=== PATIENT | male | born 1985 ===

== ENCOUNTER → 2022-08-01 13:30 | Outpatient (BNVA) | payer OTHER, SELFPAY | PROVIDERS: PCP Family Medicine; Visit Provider Clinical Nurse Specialist Adult Health | DX: J02.9 Acute pharyngitis, unspecified (principal); J02.8 Acute pharyngitis due to other specified organisms; J06.9 Acute upper respiratory infection, unspecified | CPT/HCPCS: 87880 ==

== ENCOUNTER → 2023-01-23 10:22 | Outpatient (BNVA) | payer MEDICAID, SELFPAY | PROVIDERS: PCP Family Medicine; Visit Provider Nurse Practitioner | DX: J02.0 Streptococcal pharyngitis (principal) | CPT/HCPCS: 87880 ==

== ENCOUNTER 2024-12-03 16:26 | Emergency (ER) | payer BC, SELFPAY ==
[2024-12-03 16:48] VITALS: BP 128/99; PULSE 65; RESP 18; TEMP 36.6; O2SAT 100; BMI 32.5
[2024-12-03] MEDS: tetracaine 0.5% Op Soln 4 mL Btl 1 DROP EYE-BOTH (17:27)
[2024-12-03] MEDS: fluorescein 1 mg Strip EYE-BOTH (17:27)
[2024-12-03 17:33] VITALS: BP 143/85; PULSE 63; O2SAT 96
--- NOTE | 2024-12-03 17:36 | W.ED.EYEPROB ---
HPI - Eye Problem General: Chief complaint: Eye Problems Stated complaint: rt eye inj Time Seen by Provider: 12/03/24 16:50 Source: patient Mode of arrival: ambulatory Limitations: no limitations History of Present Illness: Patient is a 39-year-old male who presents the emergency department complaining of right eye irritation beginning this morning. Patient states he was chopping wood when he had the sudden onset of something get in his eye, states that he has had constant foreign body sensation. Notes mild visual changes. Denies any significant headache. Does not report any drainage, states that he still feels like a piece of what is in his eye. Vitals within normal limits at this time. Noting associated redness. chief complaint: eye pain, eye redness, eye injury, vision change and foreign body Onset (ago): hour(s) Onset description: sudden Duration: constant Location: right eye Eye Symptoms: burning, redness, pain and foreign body sensation Mechanism: direct trauma Severity: moderate Associated symptoms: Denies fever(s), headache(s), nausea, neck pain or vomiting Treatments Prior to Arrival: none Related Data Previous Rx's ?Medication ?Instructions ?Recorded fluconazole 150 mg tablet 150 mg PO Q3D 9 days #3 tabs 02/05/23 (Diflucan) ketoconazole 2 % topical cream 1 applic topical BID #60 grams 02/05/23 risperidone 0.5 mg tablet 0.5 mg PO BID #180 tabs 07/11/24 (Risperdal) [id number] 3.5 1 drp ophthalmic (eye) Q12H #5 mL 12/03/24 mg/mL-10,000 unit/mL-0.1% eye drops (Maxitrol) Allergies Allergy/AdvReac Type Severity Reaction Status Date / Time No Known Allergies Allergy Verified 07/11/24 15:59 Review of Systems General: Reports: 10 or more systems reviewed and unremarkable except in HPI and below Const: Denies: fever(s), chills or fatigue Eyes: Reports: change in vision, eye discomfort, eye redness and other (Foreign body sensation) ENMT: Denies: throat pain, ear or mastoid pain or nasal discharge Card: Denies: chest pain, palpitations, swelling of feet/ankles or lightheadedness Resp: Denies: dyspnea, productive cough or wheezing GI: Denies: abdominal pain, nausea, vomiting, diarrhea or constipation Musc: Denies: neck pain, back pain or joint pain Neuro: Denies: headache(s), numbness in extremities or weakness in extremities PFSH ED PFSH: Medical History Tinea pedis of both feet Alcohol use disorder, severe, in sustained remission, dependence Nicotine dependence, cigarettes, uncomplicated Generalized anxiety disorder Major depressive disorder, recurrent severe without psychotic features Post-traumatic stress disorder, chronic Psychiatric care Social History Smoking and tobacco/nicotine status: current every day tobacco/nicotine user cigarettes Packs smoked per day: 1 Years cigarettes smoked: 25 Quit status (tobacco/nicotine): has tried quititng Number of times tried to quit tobacco: 6 Second hand smoke exposure: No Alcohol intake: former Substance/Drug Use: current Substance/Drug use frequency: daily Other substance/drug use details: Uses for pain. Physical Exam Const: COMMON NORMALS: no acute distress, patient oriented x3 and no limitations GENERAL APPEARANCE: cooperative, comfortable and well developed ORIENTATION/CONSCIOUSNESS: Yes awake, Yes oriented to person, Yes oriented to place and Yes oriented to time HENMT: COMMON NORMALS: normocephalic, atraumatic and hearing grossly normal bilaterally HEAD & SCALP: normocephalic and atraumatic Eye: COMMON NORMALS: Equal, round and reactive pupils present, EOMs intact bilaterally and normal visual ybarra by confrontation PUPIL: Yes Equal, round and reactive pupils present SLIT LAMP EXAM: Yes slit lamp exam performed with fluorescein, Yes conjunctiva/sclera Conjunctiva/sclera details: circumcorneal injection and Yes cornea Cornea details: linear corneal abrasion OTHER: No foreign body detected with examination of the right eye Neck/C-Spine: COMMON NORMALS: full ROM and supple Extremity: COMMON NORMALS: normal to inspection, full ROM and capillary refill normal Neuro: COMMON NORMALS: patient oriented x3, moves all extremities, no focal motor deficits and no sensory deficits noted SENSORIUM/ORIENTATION: Yes oriented to person, Yes oriented to place and Yes oriented to time Psych: COMMON NORMALS: mental status grossly normal and Normal thought process present THOUGHT PROCESS: Normal thought process present Skin: COMMON NORMALS: no rashes or lesions noted GENERAL SKIN EXAM: no rashes or lesions noted Course Vital Signs: Vital signs: Vital Signs Temperature 97.8 F 12/03/24 16:48 Pulse Rate 63 12/03/24 17:33 Respiratory Rate 18 12/03/24 16:48 Blood Pressure 143/85 12/03/24 17:33 Pulse Oximetry 96 12/03/24 17:33 Oxygen Delivery Me thod Room Air 12/03/24 16:48 MDM - Eye Problem Medical Decision Making Patient presented with foreign body to right eye after chopping wood. Did not identify any foreign body with visual examination. Fluorescein staining of the eye did reveal a corneal abrasion where he was directly stating the pain was, to the lateral aspect. Will start him on Maxitrol and have him follow-up with ophthalmology. Return precautions given. Patient verbalized understanding to return precautions. No visual deficits were appreciated at time of exam, he had noted significant relief of the pain after the tetracaine. No radiology studies performed this visit Discharge Plan Discharge Patient Disposition: Home Clinical Impression: Corneal abrasion Condition: Stable Prescriptions: New neomycin-polymyxin B-dexameth [Maxitrol] 3.5mg/mL-10,000 unit/mL-0.1 % drops,suspension 1 drp ophthalmic (eye) Q12H Qty: 5 0RF No Action ketoconazole 2 % cream 1 applic topical BID Qty: 60 4RF fluconazole [Diflucan] 150 mg tablet 150 mg PO Q3D 9 Days Qty: 3 0RF risperidone [Risperdal] 0.5 mg tablet 0.5 mg PO BID Qty: 180 1RF Discharge Orders: Discharge ED (Routine); Ordered 12/03/24 Ordered By: Sherman Arita Referrals: Dev Humphrey, STRAP CUTTING MACHINE OPERATOR [Primary Care Provider] - Patient Instructions: Corneal Abrasion (ED) Activity Restrictions/Additional Instructions: Follow-up with ophthalmology. Take eyedrops as prescribed. Ibuprofen Tylenol for pain. Avoid any further injury. Return with any new or worsening. Please see attached patient instructions for further education. Print Language: Kiswahili Coding Level of Care Code ED Hat Steamer for Urbano Zhang
== END 2024-12-03 17:35 | disposition home or self-care (01) ==
PROVIDERS: Emergency Provider Physician Assistant; PCP Clinical Nurse Specialist Adult Health
DX: S05.01XA Injury of conjunctiva and corneal abrasion without foreign body, right eye, initial encounter (principal); F17.210 Nicotine dependence, cigarettes, uncomplicated; X58.XXXA Exposure to other specified factors, initial encounter
CPT/HCPCS: 99283